=== PATIENT | male | born 1955 ===

== ENCOUNTER → 2016-11-03 | Day surgery (SDC) | payer MEDICARE, OTHER ==
[~2016-11-03] MED LIST: DESCOVY 200-251 EACH; DILANTIN PO; KLONOPIN1 MG PO; LASIX PO; LEXIVA700 MG PO; LIPITOR40 MG PO; LORTAB 10-3251 EACH PO; NORVIR100 MG PO; OMEPRAZOLE20 M2 PO; SYNTHROID0.05 MG DOB
--- NOTE | ~2016-11-03 | OR ---
Unit #: [id number] #: [id number] Patient: SAMMI BRENNAN [id number] [address] [address] [id number] MR#: [id number] NAME: SAMMI BRENNAN ROOM: Date of Procedure: 11/03/2016 Admission Date: 11/03/2016 Surgeon: Homar Alcaraz M.D. : 1955 Attending Physician: Homar Alcaraz M.D. OPERATIVE REPORT PROCEDURE PERFORMED Colonoscopy to cecum with snare polypectomy. INDICATIONS FOR PROCEDURE The patient with average risk for colorectal cancer. MEDICATIONS Monitored anesthesia. POSTOPERATIVE FINDINGS 1. Large 8 mm polyp, transverse colon, snared and sent for pathology. 2. Prep was very poor leading to suboptimal exam. PLAN Repeat colonoscopy in 3 years. DESCRIPTION OF PROCEDURE The patient was explained of the procedure, risks, and benefits along with the risk and benefits of anesthesia. He was brought to the endoscopy room. Propofol anesthesia was given. Rectal exam was done, which was normal. Colonoscope was lubricated, passed up the rectum, advanced under direct vision all the way to the cecum. Cecum was identified by ileocecal valve and appendiceal orifice. I then started to pull the scope out carefully looking. Polyp seen in the transverse colon were snared and sent for histopathology. Several areas were not visualized at all. I retroflexed in the rectum, small hemorrhoids seen. Scope was gently pulled out. He tolerated it well. No major complications were seen. Dictated by... Michi Fam/suni TD: 11/03/2016 15:27 JOB #: [id number] CC: Tuan Bonilla M.D. Unit #: [id number] #: [id number] Patient: SAMMI BRENNAN OPERATIVE REPORT Page 1 of 1 X Homar Alcaraz MD X PROCEDURE OPERATIVE NOTE
== END | disposition home or self-care (01) ==
LOC: COPS 10:04
DX: Z12.11 Encounter for screening for malignant neoplasm of colon (principal); D12.3 Benign neoplasm of transverse colon; K64.9 Unspecified hemorrhoids; K21.9 Gastro-esophageal reflux disease without esophagitis; G89.29 Other chronic pain; M25.512 Pain in left shoulder; F17.210 Nicotine dependence, cigarettes, uncomplicated; Z86.73 Personal history of transient ischemic attack (TIA), and cerebral infarction without residual deficits; Z79.899 Other long term (current) drug therapy
CPT/HCPCS: 88305; J2250